=== PATIENT | female | born 1940 | race African-American/Black ===

== ENCOUNTER 2023-10-28 12:09 | Emergency (ER) | payer OTHER ==
[~2023-10-28] VITALS: Ht 180.3 cm; Wt 84.0 kg
[2023-10-28 12:16] VITALS: O2SAT 99
[2023-10-28 13:22] LABS: BASOPHILS % 2.3 % (0.0-2.0); DIFFERENTIAL COMMENT 0; EOSINOPHILS % 2.2 % (0.0-5.0); HEMATOCRIT. 48.2 % (36.0-48.0); HEMOGLOBIN. 16.3 g/dL (12.0-16.0); LYMPHOCYTES % 30.6 % (20.0-50.0); MEAN CORPUSCULAR HEMOGLOBIN 35.8 pg (28.0-32.0); MEAN CORPUSCULAR HGB CONC 33.8 g/dL (31.0-37.0); MEAN CORPUSCULAR VOLUME 105.7 fL (81.0-99.0); MEAN PLATELET VOLUME 8.3 fl (7.4-10.4); MONOCYTES % 11.5 % (2.0-8.0); NEUTROPHILS % 53.4 % (40.0-76.0); PLATELET 143 x1000/uL (130-400); RED BLOOD CELL COUNT 4.56 mill/uL (4.2-5.4); WHITE BLOOD COUNT 3.4 x1000/uL (4.5-11.0)
[2023-10-28 13:28] LABS: INR 1.1; PROTHROMBIN TIME 11.9 sec (9.6-11.0)
[2023-10-28 13:34] LABS: ALANINE AMINOTRANSFERASE 11 IU/L (10-49); ALBUMIN 3.7 g/dL (3.2-4.8); ASPARTATE AMINOTRANSFERASE 20 IU/L (<34); BILIRUBIN TOTAL 0.9 mg/dL (0.1-1.0); CALCIUM 8.9 mg/dL (8.7-10.4); CARBON DIOXIDE 28 mEq/L (21-32); CHLORIDE 103 mEq/L (98-107); CREATININE 0.9 mg/dL (0.6-1.0); GLUCOSE 118 mg/dL (70-105); POTASSIUM 3.6 mEq/L (3.5-5.1); PROTEIN TOTAL 7.3 g/dL (6.0-8.3); SODIUM 137 mEq/L (136-145); TROPONIN I HIGH SENSITIVITY 14 ng/L (3.0-34); UREA NITROGEN BLOOD 13 mg/dL (9-23)
[2023-10-28] MEDS ORDERED: CLOPIDOGREL 75MG TABLET PO ONE (14:30)
[2023-10-28] MEDS ORDERED: ASPIRIN 81MG TABLET PO ONE (14:30)
[2023-10-28] MEDS ORDERED: IOHEXOL-350 100 ML BOTTLE ONE (15:02)
[2023-10-28 18:51] VITALS: TEMP 98.4
[2023-10-28 20:35] VITALS: BP 241/77; PULSE 66; RESP 22
== END 2023-10-28 21:16 | disposition short-term general hospital (02) ==
LOC: EDBD 12:09 → ER 12:09
DX: I10 Essential (primary) hypertension (principal); R53.1 Weakness; R47.81 Slurred speech; I48.91 Unspecified atrial fibrillation; Z20.822 Contact with and (suspected) exposure to COVID-19
CPT/HCPCS: 99285; 70496; 71045; 87426; 80053; 82962; 85025; 85610; 84484; 36415; 70498; 93005; 70450; Q9967; C9803; 99291